=== PATIENT | female | born 1985 | race Caucasian/White ===

== ENCOUNTER 2018-02-25 09:22 | Emergency (ER) | payer MEDICAID ==
[~2018-02-25] VITALS: Ht 165.1 cm; Wt 60.0 kg
[2018-02-25] MEDS ORDERED: KETOROLAC 60MG/2ML VIAL IM ONE (10:15)
[2018-02-25] MEDS ORDERED: CYCLOBENZAPRINE 10MG TABLET PO ONE (10:15)
[2018-02-25] MEDS ORDERED: ACETAMINOPHEN 500MG TABLET PO ONE (11:00)
[2018-02-25 11:08] LABS: HCG SCREEN NEGATIVE
[2018-02-25 13:23] VITALS: BP 105/66
== END 2018-02-25 13:25 | disposition home or self-care (01) ==
LOC: ER 10:06
DX: M54.2 Cervicalgia (principal)
CPT/HCPCS: 72125; 84703; 96372; 99285; J1885